=== PATIENT | female | born 1995 | race Hispanic/Latino ===

== ENCOUNTER 2020-09-03 09:16 | Emergency (ER) | payer BC, OTHER ==
[~2020-09-03] VITALS: Ht 149.9 cm; Wt 68.0 kg
--- NOTE | 2020-09-03 09:34 | NUR ---
DR. ANDRADE EVALUATING PATIENT
--- OUTSIDE RECORDS SUMMARY | 2020-09-03 09:52 | XMS REPORT | Continuity of Care Document ---
Author Author [facility] Organization [facility] Address [address] [place] [phone] Phone Unavailable Care Team Providers Care Manager Acute Name Role Phone Unavailable Unavailable Payers Payer Name Policy Type Policy Number Effective Date Expiration Date S ource Problems This patient has no known problems. Allergies, Adverse Reactions, Alerts Allergy Name Allergy Type Status Severity Reaction(s) Onset Date Inacti ve Date Treating Clinician Comments Source No Known Allergies DA Active U 2018-12-28 00:00:00 [facility] No Known Allergies DA Active U 2018-06-27 00:00:00 [facility] No Known Allergies DA Active U 2017-09-21 00:00:00 [facility] Medications This patient has no known medications. Procedures This patient has no known procedures. Results Test Description Test Time Test Comments Results Result Comments Source URINALYSIS COMPLETE 2020-03-06 22:37:00 Test Item UA COLOR (test code = COLU) [place] YELLOW UA APPEARANCE (test code = APPU) Cloudy CLEAR A UA GLUCOSE DIPSTICK (test code = DGLUU) NEGATIVE mg/dL NEGATIVE UA BILIRUBIN DIPSTICK (test code = BILU) NEGATIVE mg/dL NEGATIVE UA KETONE DIPSTICK (test code = KETU) 20 (1+) mg/dL NEGATIVE A UA SPECIFIC GRAVITY (test code = SGU) 1.031 1.001-1.035 UA BLOOD DIPSTICK (test code = ANIRUDH) 1.0 mg/dL (3+) mg/dL NEGATIVE A UA PH DIPSTICK (test code = DYLAN) 6.0 5.0-8.0 UA PROTEIN DIPSTICK (test code = PROU) 50 (1+) mg/dL NEGATIVE A UA UROBILINIOGEN DIPSTICK (test code = URO) Normal mg/dL NEGATIVE UA NITRITE DIPSTICK (test code = JANEE) NEGATIVE NEGATIVE UA LEUKOCYTE ESTERASE W REFLEX (test code = LEUUR) 25 Barbara/uL (Trace) Barbara/uL NEGATIVE A UA WBC (test code = WBCU) 6-10 per HPF 0-5 A UA RBC (test code = RBCU) 0-2 #/HPF 0-5 UA EPITHELIAL CELLS (test code = EPIU) MOD per HPF FEW UA BACTERIA (test code = BACU) MODERATE #/HPF NONE A UA MUCUS (test code = MUCU) MANY #/LPF FEW A Urine Source? Clean CatchBASIC METABOLIC [id number] 16:22:00* Test Item Value Reference Range Interpretation Comments SODIUM (test code = NA) 136 mmol/L 136-145 N POTASSIUM (test code = K) 3.6 mmol/L 3.5-5.1 N CHLORIDE (test code = CL) 105.0 mmol/L 98-107 N CARBON DIOXIDE (test code = CO2) 26.0 mmol/L 21-32 N ANION GAP (test code = GAP) 8.6 10-20 L GLUCOSE (test code = GLU) 96 mg/dL 74-106 N BLOOD UREA NITROGEN (test code = BUN) 12 mg/dL 7-18 N GLOMERULAR FILTRATION RATE (test code = GFR) > 60 mL/min >=60 Estimated GFR by using Modified MDRD formula.Chronic kidney disease is defined as either kidney damageor GFR <60 mL/min/1.73 m2 for >3 months. CREATININE (test code = CREAT) 0.60 mg/dL 0.55-1.02 N Note change in reference range due to change in reagent. BUN/CREATININE RATIO (test code = BUN/CREA) 20.0 10-20 N CALCIUM (test code = CA) 8.8 mg/dL 8.5-10.1 N HEPATIC FUNCTION [id number] 16:22:00* Test Item Value Reference Range Interpretation Comments TOTAL PROTEIN (test code = PROT) 7.8 gram/dL 6.4-8.2 N ALBUMIN (test code = ALB) 4.1 g/dL 3.4-5.0 N GLOBULIN (test code = GLOB) 3.7 gram/dL 2.7-4.2 N ALBUMIN/GLOBULIN RATIO (test code = A/G) 1.1 0.75-1.50 N BILIRUBIN TOTAL (test code = BILT) 0.50 mg/dL 0.0-1.0 N BILIRUBIN DIRECT (test code = BILD) 0.13 mg/dL 0.0-0.20 N SGOT/AST (test code = AST) 7 IUnit/L 15-37 L SGPT/ALT (test code = ALT) 16 IUnit/L 12-78 N ALKALINE PHOSPHATASE TOTAL (test code = ALKP) 58 IUnit/L 45-117 N Note change in reference range due to change in reagent. HCG SERUM [id number] 16:22:00* Test Item Value Reference Range Interpretation Comments HCG SERUM BETA (test code = HCG) 85162.0 mIU/mL 0-3 H Interfering substances present in the serum of somepatients may cause a false-positive result in this assay.Questionable elevations in serum hCG should be confirmedwith a urine hCG. Suspected Trophoblastic Neoplasms shouldnot be diagnosed based on serun hCG/beta hCG alone. Theymust be confirmed by clinical history and tissue diagnosis.INTERPRETATION:B-HCG LEVELS <5 SHOULD BE CONSIDERED "NEGATIVE." *WHEN BODERLINE RESULTS ARE ENCOUNTERED,PATIENT SAMPLESSHOULD BE REDRAWN 48 HOURS. 0-1 WEEKS AFTER CONCEPTION 5-50 MIU/ML1-2 WEEKS AFTER CONCEPTION 50-500 MIU/ML2-3 WEEKS AFTER CONCEPTION 100 -5,000 MIU/ML3-4 WEEKS AFTER CONCEPTION 500-10,000 MIU/ML4-5 WEEKS AFTER CONCEPTION 1000 -50,000 MIU/ML5-6 WEEKS AFTER CONCEPTION 10,000-100,000 MIU/ML6-8 WEEKS AFTER CONCEPTION 15,000- 200,000 MIU/ML2-3 MONTHS AFTER CONCEPTION 10,000-100,000 MIU/ML BASIC METABOLIC [id number] 15:58:00* Test Item Value Reference Range Interpretation Comments SODIUM (test code = NA) 136 mmol/L 136-145 N POTASSIUM (test code = K) 3.6 mmol/L 3.5-5.1 N CHLORIDE (test code = CL) 105.0 mmol/L 98-107 N CARBON DIOXIDE (test code = CO2) mmol/L 21-32 ANION GAP (test code = GAP) 10-20 GLUCOSE (test code = GLU) mg/dL 74-106 BLOOD UREA NITROGEN (test code = BUN) mg/dL 7-18 GLOMERULAR FILTRATION RATE (test code = GFR) mL/min >=60 CREATININE (test code = CREAT) mg/dL 0.55-1.02 BUN/CREATININE RATIO (test code = BUN/CREA) 10-20 CALCIUM (test code = CA) mg/dL 8.5-10.1 HEPATIC FUNCTION [id number] 15:58:00* Test Item Value Reference Range Interpretation Comments TOTAL PROTEIN (test code = PROT) gram/dL 6.4-8.2 ALBUMIN (test code = ALB) g/dL 3.4-5.0 GLOBULIN (test code = GLOB) gram/dL 2.7-4.2 ALBUMIN/GLOBULIN RATIO (test code = A/G) 0.75-1.50 BILIRUBIN TOTAL (test code = BILT) mg/dL 0.0-1.0 BILIRUBIN DIRECT (test code = BILD) mg/dL 0.0-0.20 SGOT/AST (test code = AST) IUnit/L 15-37 SGPT/ALT (test code = ALT) IUnit/L 12-78 ALKALINE PHOSPHATASE TOTAL (test code = ALKP) IUnit/L 45-117 HCG SERUM [id number] 15:58:00* Test Item Value Reference Range Interpretation Comments HCG SERUM BETA (test code = HCG) mIU/mL 0-3 CBC W/O [id number] 15:52:00* Test Item Value Reference Range Interpretation Comments WHITE BLOOD CELL (test code = WBC) 9.0 K/mm3 4.5-12.5 N RED BLOOD CELL (test code = RBC) 4.06 mill/mm3 3.7-5.2 N HEMOGLOBIN (test code = HGB) 13.0 gram/dL 11.5-15.5 N HEMATOCRIT (test code = HCT) 37.4 % 36.0-46.0 N MEAN CELL VOLUME (test code = MCV) 92.1 fL 80-98 N MEAN CELL HGB (test code = MCH) 32.0 picogram 27.0-33.0 N MEAN CELL HGB CONCETRATION (test code = MCHC) 34.8 gram/dL 33.0-36. 0 N RED CELL DISTRIBUTION WIDTH (test code = RDW) 12.4 % 11.6-16. 2 N PLATELET COUNT (test code = PLT) 365 K/mm3 150-450 N MEAN PLATELET VOLUME (test code = MPV) 10.3 fL 6.7-11.0 N CBC W/O [id number] 15:51:00* Test Item Value Reference Range Interpretation Comments WHITE BLOOD CELL (test code = WBC) K/mm3 4.5-12.5 RED BLOOD CELL (test code = RBC) mill/mm3 3.7-5.2 HEMOGLOBIN (test code = HGB) 13.0 gram/dL 11.5-15.5 N HEMATOCRIT (test code = HCT) 37.4 % 36.0-46.0 N MEAN CELL VOLUME (test code = MCV) fL 80-98 MEAN CELL HGB (test code = MCH) picogram 27.0-33.0 MEAN CELL HGB CONCETRATION (test code = MCHC) gram/dL 33.0-36. 0 RED CELL DISTRIBUTION WIDTH (test code = RDW) % 11.6-16. 2 PLATELET COUNT (test code = PLT) K/mm3 150-450 MEAN PLATELET VOLUME (test code = MPV) fL 6.7-11.0 - DUP AB/PEL/SC [id number] 15:44:00 Name: LALITA GONZALEZ [facility] : 1995 Age/S: 24 / F Rajendra Landaverde marilu Unit #: [id number] Loc: [place] [address] Phys: Salima Michele NP Acct: [id number] Dis Date: Status: REG ER PHONE #: [phone] Exam Date: 03/06/2020 [facility] FAX #: [phone] Reason: PELVIC PAIN EXAMS: CPT CODE: [id number] DUP AB/PEL/SC COMP [id number] REASON FOR EXAM: VAGINAL BLEEDING/PELVIC PAIN EXAM ORDER DATE: 03/06/2020 2:48 PM Attending: Ordering:Salima Michele NP Location:[facility] PROCEDURE: - US PREG 1ST TRIMTR, - US PREG UT TRANSVAGINAL, - DUP AB/PEL/SC COMP FINDINGS: The transabdominal ultrasound shows the uterus measured 8.5 x 5.5 cm. The ovaries were not seen on the transabdominal exam. No evidence of free fluid or adnexal mass on the transabdominal exam. The transvaginal ultrasound shows a single IUP with gestational sac measurement of 1.6 cm (6 week 2 day). [place] rump length measurement is 0.2 cm (5 week 5 day). heart rate is 108 bpm. The right ovary measured 2.6 x 2.2 cm. The left ovary measured 2.2 x 1.8 cm. Unremarkable ovarian flow is seen. Duplex scans of the ovarian arteries were performed. Agarwal scale images were supplemented with color-flow Doppler. Doppler flow velocity analysis (duplex Doppler) was performed. No fluid seen in the cul-de-sac. IMPRESSION: Small subchorionic hemorrhages (0.9 cm and 1.3 cm). Single viable IUP with estimated sonographic age of 6 week 0 day +/-0 week 3 day. Estimated delivery date is 10/30/2020 at 1544 Reported and signed by: Pierre Herrera M.D. CC: Gissell Carvajal MD; Salima Michele NP Technologist: IMELDA BARROW RT(R),KIRK Trnscb Date/Time: 03/06/2020 (9203) tSHINE Orig Print D/T: S: 03/06/2020 (0539) Probe: PAGE 1 Signed Report - US PREG UT [id number] 15:44:00 Name: LALITA GONZALEZ [facility] : 1995 Age/S: 24 / F [address] Unit #: [id number] Loc: [place] [address] Phys: Salima Michele NP Acct: [id number] Dis Date: Status: REG ER PHONE #: [phone] Exam Date: 03/06/2020 1535 FAX #: [phone] Reason: PELVIC PAIN EXAMS: CPT CODE: [id number] US PREG UT TRANSVAGINAL [id number] REASON FOR EXAM: VAGINAL BLEEDING/PELVIC PAIN EXAM ORDER DATE: 03/06/2020 2:48 PM Attending: Ordering:Salima Michele NP Location:[facility] PROCEDURE: - US PREG 1ST TRIMTR, - US PREG UT TRANSVAGINAL, - DUP AB/PEL/SC COMP FINDINGS: The transabdominal ultrasound shows the uterus measured 8.5 x 5.5 cm. The ovaries were not seen on the transabdominal exam. No evidence of free fluid or adnexal mass on the transabdominal exam. The transvaginal ultrasound shows a single IUP with gestational sac measurement of 1.6 cm (6 week 2 day). [place] rump length measurement is 0.2 cm (5 week 5 day). heart rate is 108 bpm. The right ovary measured 2.6 x 2.2 cm. The left ovary measured 2.2 x 1.8 cm. Unremarkable ovarian flow is seen. Duplex scans of the ovarian arteries were performed. Agarwal scale images were supplemented with color-flow Doppler. Doppler flow velocity analysis (duplex Doppler) was performed. No fluid seen in the cul-de-sac. IMPRESSION: Small subchorionic hemorrhages (0.9 cm and 1.3 cm). Single viable IUP with estimated sonographic age of 6 week 0 day +/-0 week 3 day. Estimated delivery date is 10/30/2020 at 6670 Reported and signed by: Pierre Herrera M.D. CC: Gissell Carvajal MD; Salima Michele NP Technologist: IMELDA BARROW RT(R),RDMS Trnscb Date/Time: 03/06/2020 (6561) [email or web address] Orig Print D/T: S: 03/06/2020 (1540) Probe: [id number] PAGE 1 Signed Report - US PREG 1ST [id number] 15:44:00 Name: LALITA GONZALEZ [facility] : 1995 Age/S: 24 / F Rajendra Kim Unit #: [id number] Loc: [place] [address] Phys: Salima Michele NP Acct: [id number] Dis Date: Status: REG ER PHONE #: [phone] Exam Date: 03/06/2020 5511 FAX #: [phone] Reason: VAGINAL BLEEDING/PELVIC PAIN EXAMS: CPT CODE: [id number] US PREG 1ST TRIMTR [id number] REASON FOR EXAM: VAGINAL BLEEDING/PELVIC PAIN EXAM ORDER DATE: 03/06/2020 2:48 PM Attending: Ordering:Salima Michele NP Location:[facility] PROCEDURE: - US PREG 1ST TRIMTR, - US PREG UT TRANSVAGINAL, - DUP AB/PEL/SC COMP FINDINGS: The transabdominal ultrasound shows the uterus measured 8.5 x 5.5 cm. The ovaries were not seen on the transabdominal exam. No evidence of free fluid or adnexal mass on the transabdominal exam. The transvaginal ultrasound shows a single IUP with gestational sac measurement of 1.6 cm (6 week 2 day). [place] rump length measurement is 0.2 cm (5 week 5 day). heart rate is 108 bpm. The right ovary measured 2.6 x 2.2 cm. The left ovary measured 2.2 x 1.8 cm. Unremarkable ovarian flow is seen. Duplex scans of the ovarian arteries were performed. [place] scale images were supplemented with color-flow Doppler. Doppler flow velocity analysis (duplex Doppler) was performed. No fluid seen in the cul-de-sac. IMPRESSION: Small subchorionic hemorrhages (0.9 cm and 1.3 cm). Single viable IUP with estimated sonographic age of 6 week 0 day +/-0 week 3 day. Estimated delivery date is 10/30/2020 at 1544 Reported and signed by: Pierre Herrera M.D. CC: Gissell Carvajal MD; Salima Michele NP Technologist: IMELDA BARROW RT(R),MILLYID Trnwvb Date/Time: 03/06/2020 (250) Ines Orig Print D/T: S: 03/06/2020 (2440) Probe: PAGE 1 Signed Report URINALYSIS [id number] 14:28:00* Test Item Value Reference Range Interpretation Comments UA COLOR (test code = COLU) LIGHT YELLOW YELLOW UA APPEARANCE (test code = APPU) HAZY CLEAR A UA GLUCOSE DIPSTICK (test code = DGLUU) NORMAL mg/dL NEGATIVE UA BILIRUBIN DIPSTICK (test code = BILU) NEGATIVE mg/dL NEGATIVE UA KETONE DIPSTICK (test code = KETU) neg mg/dL NEGATIVE UA SPECIFIC GRAVITY (test code = SGU) 1.015 1.001-1.035 UA BLOOD DIPSTICK (test code = ANIRUDH) 10 (Trace) Christian/uL NEGATIVE A UA PH DIPSTICK (test code = DYLAN) 5.0 5.0-8.0 UA PROTEIN DIPSTICK (test code = PROU) neg mg/dL Neg-15 UA UROBILINIOGEN DIPSTICK (test code = URO) norm mg/dL 0.0-0.2 UA NITRITE DIPSTICK (test code = JANEE) NEGATIVE NEGATIVE UA LEUKOCYTE ESTERASE DIPSTICK (test code = LEUU) 25 (Trace) uL NEG ATIVE A UA WBC (test code = WBCU) 0-5 per HPF 0-5 IN SOME URINARY TRACT INFECTIONS THERE MAY NOT BE ENOUGHWBCs IN THE URINE TO TRIGGER AN AUTOMATIC (REFLEX) URINECULTURE. A SEPERATE ORDER FOR URINE CULTURE IS RECOMMENDEDIF THERE IS STRONG SUPPORT FOR A URINARY TRACT INFECTIONCLINICALLY. UA RBC (test code = RBCU) NONE SEEN per HPF 0-5 UA EPITHELIAL CELLS (test code = EPIU) Few (2-5/hpf) per HPF Few UA BACTERIA (test code = BACU) FEW per HPF NONE UA MUCUS (test code = MUCU) MANY per LPF NONE-FEW URINALYSIS W/O [id number] 14:28:00* Test Item Value Reference Range Interpretation Comments UA MICROSCOPIC NEEDED? (test code = UAMICRO) NO, NOT INDICATED UA MICROSCOPIC NOT INDICATED UA MICROSCOPIC EXAMS ARE NOT PERFORMED UNLESS ONE OF THECHEMICAL TESTS OR VISUAL EXAMINATION IS ABNORMAL. THE MICROSCOPIC EVALUATIONS ARE PERFORMED ON ALL ABNORMALRESULTS AND/OR WHEN SPECIFICALLY ORDERED BY A PHYSICIAN. UR HCG [id number] 14:28:00* Test Item Value Reference Range Interpretation Comments UR HCG QUAL (test code = HCGQLU) NEGATIVE This HCGQL test is NOT applicable for MALE patients.Check with nurse about probable order error.If Tumor Marker Test needed, nurse should order test "HCGTU"(Test #[id number]) URINALYSIS [id number] 14:24:00* Test Item Value Reference Range Interpretation Comments UA COLOR (test code = COLU) LIGHT YELLOW YELLOW UA APPEARANCE (test code = APPU) HAZY CLEAR A UA GLUCOSE DIPSTICK (test code = DGLUU) NORMAL mg/dL NEGATIVE UA BILIRUBIN DIPSTICK (test code = BILU) NEGATIVE mg/dL NEGATIVE UA KETONE DIPSTICK (test code = KETU) neg mg/dL NEGATIVE UA SPECIFIC GRAVITY (test code = SGU) 1.015 1.001-1.035 UA BLOOD DIPSTICK (test code = ANIRUDH) 10 (Trace) Christian/uL NEGATIVE A UA PH DIPSTICK (test code = DYLAN) 5.0 5.0-8.0 UA PROTEIN DIPSTICK (test code = PROU) neg mg/dL Neg-15 UA UROBILINIOGEN DIPSTICK (test code = URO) norm mg/dL 0.0-0.2 UA NITRITE DIPSTICK (test code = JANEE) NEGATIVE NEGATIVE UA LEUKOCYTE ESTERASE DIPSTICK (test code = LEUU) 25 (Trace) uL NEG ATIVE A UA WBC (test code = WBCU) per HPF 0-5 URINALYSIS W/O [id number] 14:24:00* Test Item Value Reference Range Interpretation Comments UA MICROSCOPIC NEEDED? (test code = UAMICRO) NO, NOT INDICATED UA MICROSCOPIC NOT INDICATED UA MICROSCOPIC EXAMS ARE NOT PERFORMED UNLESS ONE OF THECHEMICAL TESTS OR VISUAL EXAMINATION IS ABNORMAL. THE MICROSCOPIC EVALUATIONS ARE PERFORMED ON ALL ABNORMALRESULTS AND/OR WHEN SPECIFICALLY ORDERED BY A PHYSICIAN. UR HCG [id number] 14:24:00* Test Item Value Reference Range Interpretation Comments UR HCG QUAL (test code = HCGQLU) URINALYSIS [id number] 14:24:00* Test Item Value Reference Range Interpretation Comments UA COLOR (test code = COLU) LIGHT YELLOW YELLOW UA APPEARANCE (test code = APPU) HAZY CLEAR A UA GLUCOSE DIPSTICK (test code = DGLUU) NORMAL mg/dL NEGATIVE UA BILIRUBIN DIPSTICK (test code = BILU) NEGATIVE mg/dL NEGATIVE UA KETONE DIPSTICK (test code = KETU) neg mg/dL NEGATIVE UA SPECIFIC GRAVITY (test code = SGU) 1.015 1.001-1.035 UA BLOOD DIPSTICK (test code = ANIRUDH) 10 (Trace) Christian/uL NEGATIVE A UA PH DIPSTICK (test code = DYLAN) 5.0 5.0-8.0 UA PROTEIN DIPSTICK (test code = PROU) neg mg/dL Neg-15 UA UROBILINIOGEN DIPSTICK (test code = URO) norm mg/dL 0.0-0.2 UA NITRITE DIPSTICK (test code = JANEE) NEGATIVE NEGATIVE UA LEUKOCYTE ESTERASE DIPSTICK (test code = LEUU) 25 (Trace) uL NEG ATIVE A UA WBC (test code = WBCU) per HPF 0-5 URINALYSIS W/O [id number] 14:24:00* Test Item Value Reference Range Interpretation Comments UA MICROSCOPIC NEEDED? (test code = UAMICRO) NO, NOT INDICATED UA MICROSCOPIC NOT INDICATED UA MICROSCOPIC EXAMS ARE NOT PERFORMED UNLESS ONE OF THECHEMICAL TESTS OR VISUAL EXAMINATION IS ABNORMAL. THE MICROSCOPIC EVALUATIONS ARE PERFORMED ON ALL ABNORMALRESULTS AND/OR WHEN SPECIFICALLY ORDERED BY A PHYSICIAN. UR HCG [id number] 14:24:00* Test Item Value Reference Range Interpretation Comments UR HCG QUAL (test code = HCGQLU)
[2020-09-03 09:53] LABS: BASOPHILS % 0.6 % (0.0-1.0); EOSINOPHILS # (AUTO) 0.3 (0.0-0.4); HEMATOCRIT 39.6 % (34.2-44.1); HEMOGLOBIN 13.8 g/dL (12.0-16.0); LYMPHOCYTES # (AUTO) 2.2 (1.0-3.2); LYMPHOCYTES % 31.8 % (18.0-39.1); MEAN CORPUSCULAR HEMOGLOBIN 32.1 pg (28-32); MEAN CORPUSCULAR HGB CONC 34.8 g/dL (31-35); MEAN CORPUSCULAR VOLUME 92.1 fL (81-99); MONOCYTES # (AUTO) 0.5 (0.2-0.8); MONOCYTES % 6.9 % (4.4-11.3); NEUTROPHILS # (AUTO) 3.8 (2.1-6.9); NEUTROPHILS % 56.4 % (38.7-80.0); PLATELET COUNT 388 x10e3/uL (140-360); RED CELL DISTRIBUTION WIDTH 12.4 % (11.7-14.4)
[2020-09-03] MEDS ORDERED: LORAZEPAM INJ 2 MG/ML VIAL IV ONE (10:00)
[2020-09-03 10:13] LABS: ALANINE AMINOTRANSFERASE 8 IU/L (0-55); ALBUMIN 4.4 g/dL (3.5-5.0); ALKALINE PHOSPHATASE 49 IU/L (40-150); BLOOD UREA NITROGEN 15 mg/dL (7-26); BUN/CREATININE RATIO 21 (6-25); CALCIUM 9.1 mg/dL (8.4-10.2); CARBON DIOXIDE 22 mmol/L (22-29); CHLORIDE 105 mmol/L (98-107); CREATININE, SERUM 0.71 mg/dL (0.57-1.11); EST GLOMERULAR FILTRATION RATE > 60 ML/MIN (60-); GLUCOSE 104 mg/dL (74-118); SODIUM 135 mmol/L (136-145)
[2020-09-03 10:17] LABS: CLARITY,URINE SL CLOUDY (CLEAR); COLOR,URINE YELLOW (YELLOW); LEUKOCYTE ESTERASE ,URINE NEGATIVE (NEGATIVE); NITRITE,URINE NEGATIVE (NEGATIVE)
[2020-09-03 10:18] LABS: BACTERIA,URINE RARE /HPF; BILIRUBIN,URINE NEGATIVE (NEGATIVE); EPITHELIAL CELLS,URINE FEW /LPF; KETONES,URINE NEGATIVE (NEGATIVE); PROTEIN,URINE DIPSTICK NEGATIVE (NEGATIVE); URINE UROBILINOGEN 0.2 mg/dL (0.2 - 1)
[2020-09-03 10:19] LABS: PREGNANCY TEST, URINE NEGATIVE (NEGATIVE)
--- NOTE | 2020-09-03 10:22 | Emergency Department Note ---
History of Present Illnes History of Present Illness Chief Complaint: General Medicine Complaints History of Present Illness This is a 24 year old female arrives to the ED with an acute anxiety attack that she states happened at work. . Chief Complaint Comment WHILE AT WORK BEGAN HAVING LEFT FOREARM ARM NUMBNESS AND CRAMPING AND FELT LIKE SHE WAS SEEING STARS. ALSO STATES SINCE SHE HAS HAD SAME EPISODE ALONG WITH "BLACKING OUT" FOR APPROX 10 MIN. WHILE IN TRIAGE SHE C/O OF DIZZINESS WHEN SHE RAISES HER HEAD UP TO FAST. Historian: Patient, Friend Arrival Mode: Car Additional Treatment [employer]: NONE Radiation: Reports non-radiation Severity: mild Onset quality: sudden Duration (how long): hour(s) Chronicity: recurrent Context: Denies recent illness, Denies recent surgery Relieving factors: none Exacerbating factors: none Past Medical/Family History Physician Review I have reviewed the patient's past medical and family history. Any updates have been documented here. Past Medical History Recent Fever: No Clinical Suspicion of Infectio: No New/Unexplained Change in Ment: No Past Medical History: None Past Surgical History: None Social History Smoking Cessation: Never Smoker Counseling Performed: No Alcohol Use: None Any Illegal Drug Use: No Other Last Tetanus: UTD Any Pre-Existing Lines (PICC,: No Review of Systems Review of Systems Constitutional: Reports no symptoms EENTM: Reports no symptoms Cardiovascular: Reports no symptoms Respiratory: Reports no symptoms Gastrointestinal: Reports no symptoms Genitourinary: Reports no symptoms Musculoskeletal: Reports no symptoms Integumentary: Reports no symptoms Neurological: Reports no symptoms Psychological: Reports as per HPI, Reports anxiety Endocrine: Reports no symptoms Hematological/Lymphatic: Reports no symptoms Physical Exam Related Data Allergies: Coded Allergies: No Known Allergies (Unverified , 09/03/20) Triage Vital Signs Vital Signs Date Time Temp Pulse Resp B/P (MAP) Pulse Ox O2 Delivery O2 Flow Rate FiO2 09/03/20 09:18 98.3 100 18 150/115 100 Room Air Vital signs reviewed: Yes Physical Exam CONSTITUTIONAL Constitutional: Present well-developed, Present well-nourished HENT HENT: Present normocephalic, Present atraumatic, Present oropharynx clear/moist, Present nose normal HENT L/R: Present left ext ear normal, Present right ext ear normal EYES Eyes: Reports PERRL, Reports conjunctivae normal NECK Neck: Present ROM normal PULMONARY Pulmonary: Present effort normal, Present breath sounds normal CARDIOVASCULAR Cardiovascular: Present regular rhythm, Present heart sounds normal, Present capillary refill normal, Present normal rate GASTROINTESTINAL Abdominal: Present soft, Present nontender, Present bowel sounds normal GENITOURINARY Genitourinary: Present exam deferred SKIN Skin: Present warm, Present dry MUSCULOSKELETAL Musculoskeletal: Present ROM normal NEUROLOGICAL Neurological: Present alert, Present oriented x 3, Present no gross motor or sensory deficits PSYCHOLOGICAL Psychological: Present mood/affect normal, Present judgement normal Results Laboratory Result Diagram: 09/03/20 0944 Laboratory Laboratory Tests Test 09/03/20 09:44 White Blood Count 6.80 x10e3/uL (4.8-10.8) Red Blood Count 4.30 x10e6/uL (3.6-5.1) Hemoglobin 13.8 g/dL (12.0-16.0) Hematocrit 39.6 % (34.2-44.1) Mean Corpuscular Volume 92.1 fL (81-99) Mean Corpuscular Hemoglobin 32.1 pg (28-32) Mean Corpuscular Hemoglobin Concent 34.8 g/dL (31-35) Red Cell Distribution Width 12.4 % (11.7-14.4) Platelet Count 388 x10e3/uL (140-360) Neutrophils (%) (Auto) 56.4 % (38.7-80.0) Lymphocytes (%) (Auto) 31.8 % (18.0-39.1) Monocytes (%) (Auto) 6.9 % (4.4-11.3) Eosinophils (%) (Auto) 4.0 % (0.0-6.0) Basophils (%) (Auto) 0.6 % (0.0-1.0) Neutrophils # (Auto) 3.8 (2.1-6.9) Lymphocytes # (Auto) 2.2 (1.0-3.2) Monocytes # (Auto) 0.5 (0.2-0.8) Eosinophils # (Auto) 0.3 (0.0-0.4) Basophils # (Auto) 0.0 (0.0-0.1) Absolute Immature Granulocyte (auto 0.02 x10e3/uL (0-0.1) Lab results reviewed: Yes Laboratory comments Laboratory Tests Test 11/8/20 09:44 White Blood Count 6.80 x10e3/uL (4.8-10.8) Red Blood Count 4.30 x10e6/uL (3.6-5.1) Hemoglobin 13.8 g/dL (12.0-16.0) Hematocrit 39.6 % (34.2-44.1) Mean Corpuscular Volume 92.1 fL (81-99) Mean Corpuscular Hemoglobin 32.1 pg (28-32) Mean Corpuscular Hemoglobin Concent 34.8 g/dL (31-35) Red Cell Distribution Width 12.4 % (11.7-14.4) Platelet Count 388 x10e3/uL (140-360) Neutrophils (%) (Auto) 56.4 % (38.7-80.0) Lymphocytes (%) (Auto) 31.8 % (18.0-39.1) Monocytes (%) (Auto) 6.9 % (4.4-11.3) Eosinophils (%) (Auto) 4.0 % (0.0-6.0) Basophils (%) (Auto) 0.6 % (0.0-1.0) Neutrophils # (Auto) 3.8 (2.1-6.9) Lymphocytes # (Auto) 2.2 (1.0-3.2) Monocytes # (Auto) 0.5 (0.2-0.8) Eosinophils # (Auto) 0.3 (0.0-0.4) Basophils # (Auto) 0.0 (0.0-0.1) Absolute Immature Granulocyte (auto 0.02 x10e3/uL (0-0.1) Urine Color Yellow (YELLOW) Urine Clarity Sl cloudy (CLEAR) Urine pH 7 (5 - 7) Urine Specific [place] >=1.030 (1.010-1.025) Urine Protein Negative (NEGATIVE) Urine Glucose (UA) Negative (NEGATIVE) Urine Ketones Negative (NEGATIVE) Urine Blood Trace (NEGATIVE) Urine Nitrite Negative (NEGATIVE) Urine Bilirubin Negative (NEGATIVE) Urine Urobilinogen 0.2 mg/dL (0.2 - 1) Urine Leukocyte Esterase Negative (NEGATIVE) Urine RBC 6-10 /HPF (0-5) Urine WBC 6-10 /HPF (0-5) Urine Epithelial Cells Few /LPF (NONE) Urine Bacteria Rare /HPF (NONE) Urine Test Negative (NEGATIVE) Sodium Level 135 mmol/L (136-145) Potassium Level 4.5 mmol/L (3.5-5.1) Chloride Level 105 mmol/L (98-107) Carbon Dioxide Level 22 mmol/L (22-29) Anion Gap 12.5 mmol/L (8-16) Blood Urea Nitrogen 15 mg/dL (7-26) Creatinine 0.71 mg/dL (0.57-1.11) Estimat Glomerular Filtration Rate > 60 ML/MIN (60-) BUN/Creatinine Ratio 21 (6-25) Glucose Level 104 mg/dL (74-118) Calcium Level 9.1 mg/dL (8.4-10.2) Total Bilirubin 0.2 mg/dL (0.2-1.2) Aspartate Amino Transf (AST/SGOT) 33 IU/L (5-34) Alanine Aminotransferase (ALT/SGPT) 8 IU/L (0-55) Alkaline Phosphatase 49 IU/L (40-150) Total Protein 8.6 g/dL (6.5-8.1) Albumin 4.4 g/dL (3.5-5.0) Globulin 4.2 g/dL (2.3-3.5) Albumin/Globulin Ratio 1.0 (0.8-2.0) Imaging Imaging results reviewed: Yes Procedures 12 Lead ECG Interpretation ECG Interpretation : ECG: ECG 1 Prior ECG tracings: reviewed QRS axis: normal ST segments normal: Yes T waves normal: Yes Clinical Impression: normal ECG Assessment & Plan Medical Decision Making MDM This patient presents with symptoms consistent with acute anxiety reaction / panic attack. Low suspicion for acute cardiopulmonary process including ACS, PE, or thoracic aortic dissection. Denies any ingestions or any other medical complaints. No evidence of alcohol withdrawal symptoms. Presentation not consistent with overt toxidrome, ingestion given history & physical. Presentation not consistent with organic or medical emergency at this time. No acute indication for psychiatric consultation (without SI/HI, AH/VH). Cautious return precautions discussed with full understanding. Plan: Rx Valium 2 mg by mouth every 8 hours when necessary, Psych follow up PRN Assessment & Plan Final Impression: (1) Acute anxiety Depart Disposition: HOME, SELF-CARE Last Vital Signs Date Time Temp Pulse Resp B/P (MAP) Pulse Ox O2 Delivery O2 Flow Rate FiO2 11/8/20 09:18 98.3 100 18 150/115 100 Room Air Home Meds Active Scripts Diazepam (VALIUM) 2 Mg Tablet, 2 MG PO Q6HR PRN for MUSCLE SPASMS, #20 0 Refills Prov:MILLICENT ANDRADE DO 09/03/20 Medications in the ED Lorazepam 1 mg ONCE ONCE IV ; Start 09/03/20 at 10:00; Stop 09/03/20 at 10:01 Lorazepam 1 mg ONCE ONCE PO Last administered on 09/03/20at 10:08; Admin Dose 1 MG; Start 09/03/20 at 10:30; Stop 09/03/20 at 10:31 MILLICENT ANDRADE DO Sep 03, 2020 10:17
[2020-09-03 10:26] LABS: ANION GAP 12.5 mmol/L (8-16); POTASSIUM 4.5 mmol/L (3.5-5.1)
[2020-09-03] MEDS ORDERED: LORAZEPAM 1 MG TAB PO ONE (10:30)
--- NOTE | 2020-09-03 11:11 | Diagnostic Imaging Report ---
Examination: CT BRAIN WO History:Dizzy, seizures Comparison studies:None Technique: Axial images were obtained from the skull base to the vertex. Coronal and sagittal images reconstructed from the axial data. Dose modulation, iterative reconstruction, and/or weight based adjustment of the mA/kV was utilized to reduce the radiation dose to as low as reasonably achievable. Intravenous contrast: None Findings: Scalp: No abnormalities. Bones: No fractures, blastic or lytic lesions. Brain sulci: Appropriate for age. Ventricles: Normal in size and configuration. No hydrocephalus. Extra-axial space: No abnormalities. Parenchyma: No abnormal densities. No masses, hemorrhage, or acute or chronic cortical based vascular insults.. Sellar/suprasellar region: No abnormalities. Craniocervical junction: Patent foramen magnum. No Chiari one malformation. Incidental findings: None. Impression: No intracranial abnormalities. Signed by: Dr. Laina Nayak M.D. on 09/03/2020 11:07 AM
[2020-09-03] MEDS ORDERED: VALIUM2 MG PO (11:17)
== END 2020-09-03 11:29 | disposition home or self-care (01) ==
LOC: ER 09:50
DX: F41.9 Anxiety disorder, unspecified (principal)
CPT/HCPCS: 36415; 70450; 80053; 81001; 81025; 85025; 93005; 99284

== ENCOUNTER 2020-10-04 11:41 | Emergency (ER) | payer BC ==
[~2020-10-04] VITALS: Ht 149.9 cm; Wt 68.0 kg
[~2020-10-04 11:41] MED LIST: VALIUM2 MG PO
[2020-10-04 12:13] LABS: STREPTOCOCCUS GRP A ANTIGEN NEGATIVE (NEGATIVE)
[2020-10-04] MEDS ORDERED: ONDANSETRON HCL 4 MG ORAL DISINTEGRATING TAB PO ONE (12:15)
[2020-10-04 12:28] LABS: INFLUENZAE A&B ANTIGEN (RAPID) NEGATIVE (NEGATIVE)
[2020-10-04 13:33] VITALS: BP 132/90
== END 2020-10-04 13:33 | disposition home or self-care (01) ==
LOC: ER 11:55
DX: B34.9 Viral infection, unspecified (principal); R51.9 Headache, unspecified; F41.9 Anxiety disorder, unspecified; Z20.828 Contact with and (suspected) exposure to other viral communicable diseases
CPT/HCPCS: 83518; 87070; 87400; 99283; Q0162; U0002

== ENCOUNTER → 2020-10-25 | Outpatient (CLI) | payer OTHER ==
[~2020-10-25] MED LIST changes: +COVID-19 VACC, MRNA(MODERNA)/PF 100 MCG/0.5 ML VIAL IM ONE
== END ==
LOC: VACCPMC 11:50
DX: Z23 Encounter for immunization (principal); Z20.828 Contact with and (suspected) exposure to other viral communicable diseases

== ENCOUNTER → 2020-11-17 | Outpatient (CLI) | payer BC ==
[~2020-11-17] MED LIST changes: -COVID-19 VACC, MRNA(MODERNA)/PF 100 MCG/0.5 ML VIAL IM ONE
[2020-11-17 07:43] LABS: BASOPHILS % 0.6 % (0.0-1.0); EOSINOPHILS # (AUTO) 0.3 (0.0-0.4); EOSINOPHILS % 4.9 % (0.0-6.0); HEMATOCRIT 39.2 % (34.2-44.1); HEMOGLOBIN 13.1 g/dL (12.0-16.0); LYMPHOCYTES # (AUTO) 2.4 (1.0-3.2); MEAN CORPUSCULAR HEMOGLOBIN 31.6 pg (28-32); MEAN CORPUSCULAR HGB CONC 33.4 g/dL (31-35); MEAN CORPUSCULAR VOLUME 94.7 fL (81-99); MONOCYTES # (AUTO) 0.6 (0.2-0.8); NEUTROPHILS # (AUTO) 3.7 (2.1-6.9); NEUTROPHILS % 52.2 % (38.7-80.0); PLATELET COUNT 349 x10e3/uL (140-360); RED BLOOD COUNT 4.14 x10e6/uL (3.6-5.1); RED CELL DISTRIBUTION WIDTH 12.4 % (11.7-14.4)
[2020-11-17 08:09] LABS: ALANINE AMINOTRANSFERASE 8 IU/L (0-55); ALBUMIN 4.2 g/dL (3.5-5.0); ALBUMIN/GLOBULIN RATIO 1.2 (0.8-2.0); ALKALINE PHOSPHATASE 59 IU/L (40-150); ANION GAP 15.2 mmol/L (8-16); BLOOD UREA NITROGEN 18 mg/dL (7-26); BUN/CREATININE RATIO 27 (6-25); CALCIUM 8.7 mg/dL (8.4-10.2); CARBON DIOXIDE 25 mmol/L (22-29); CHLORIDE 103 mmol/L (98-107); CHOL/HDL RATIO 2.8 (3.0-3.6); CHOLESTEROL 178 MD/DL (0-199); CREATININE, SERUM 0.66 mg/dL (0.57-1.11); EST GLOMERULAR FILTRATION RATE > 60 ML/MIN (60-); GLUCOSE 106 mg/dL (74-118); HDL CHOLESTEROL 63 MG/DL (40-60); LDL CHOLESTEROL 103 MG/DL (60-130); MAGNESIUM 1.9 MG/DL (1.3-2.1); POTASSIUM 4.2 mmol/L (3.5-5.1); SODIUM 139 mmol/L (136-145); TRIGLYCERIDES 59 MG/DL (0-149)
[2020-11-17 08:30] LABS: HCG,QUANTITATIVE < 1.20 mIU/mL (0-10); THYROID STIMULATING HORMONE 0.927 uIU/mL (0.350-4.940)
== END ==
LOC: LAB 07:22
PROVIDERS: ATTEND Internal Medicine
DX: Z00.00 Encounter for general adult medical examination without abnormal findings (principal); Z13.220 Encounter for screening for lipoid disorders; R73.09 Other abnormal glucose; N92.6 Irregular menstruation, unspecified; E55.9 Vitamin D deficiency, unspecified; M79.10 Myalgia, unspecified site
CPT/HCPCS: 36415; 80053; 80061; 82044; 82306; 82570; 82607; 83036; 83735; 84443; 84702; 85025

== ENCOUNTER → 2020-11-27 | Outpatient (CLI) | payer OTHER ==
[~2020-11-27] MED LIST changes: +COVID-19 VACC, MRNA(MODERNA)/PF 100 MCG/0.5 ML VIAL IM ONE
== END ==
LOC: VACCPMC 09:37
DX: Z23 Encounter for immunization (principal); Z20.822 Contact with and (suspected) exposure to COVID-19
CPT/HCPCS: 0012A; 91301

== ENCOUNTER → 2021-07-27 | Outpatient (CLI) | payer BC ==
[~2021-07-27] MED LIST changes: -COVID-19 VACC, MRNA(MODERNA)/PF 100 MCG/0.5 ML VIAL IM ONE; +IOPAMIDOL 370 MG/ML 200 ML INFUS..BTL INJ ONE; +SODIUM CHLORIDE 0.9% 50ML 50 ML ONE
== END ==
LOC: CT 13:25
PROVIDERS: ATTEND Internal Medicine Gastroenterology
DX: K62.5 Hemorrhage of anus and rectum (principal); R10.30 Lower abdominal pain, unspecified
CPT/HCPCS: 74177; 81025; Q9967

== ENCOUNTER → 2021-08-02 | Day surgery (SDC) | payer BC ==
[~2021-08-02] MED LIST changes: +FENTANYL CITRATE/PF 100MCG/2 ML INJ ONE; -IOPAMIDOL 370 MG/ML 200 ML INFUS..BTL INJ ONE; +LABETALOL HCL 20 ML ONE; -SODIUM CHLORIDE 0.9% 50ML 50 ML ONE
[2021-08-02 10:15] VITALS: BP 115/87
== END | disposition home or self-care (01) ==
LOC: OR 06:32
PROVIDERS: ATTEND Internal Medicine Gastroenterology
DX: K62.5 Hemorrhage of anus and rectum (principal); D12.5 Benign neoplasm of sigmoid colon; K64.8 Other hemorrhoids; K62.89 Other specified diseases of anus and rectum; Z01.812 Encounter for preprocedural laboratory examination; Z20.822 Contact with and (suspected) exposure to COVID-19
CPT/HCPCS: 45380; 45381; 81025; J3010; J3490; U0002; 45378

== ENCOUNTER 2021-08-14 09:37 | Emergency (ER) | payer BC ==
[~2021-08-14] VITALS: Ht 149.9 cm; Wt 68.0 kg
[~2021-08-14 09:37] MED LIST changes: -FENTANYL CITRATE/PF 100MCG/2 ML INJ ONE; -LABETALOL HCL 20 ML ONE
[2021-08-14 10:02] LABS: BASOPHILS % 0.4 % (0.0-1.0); EOSINOPHILS # (AUTO) 0.2 (0.0-0.4); HEMATOCRIT 39.4 % (34.2-44.1); HEMOGLOBIN 13.4 g/dL (12.0-16.0); LYMPHOCYTES # (AUTO) 2.5 (1.0-3.2); LYMPHOCYTES % 35.6 % (18.0-39.1); MEAN CORPUSCULAR HEMOGLOBIN 31.3 pg (28-32); MEAN CORPUSCULAR VOLUME 92.1 fL (81-99); MONOCYTES # (AUTO) 0.4 (0.2-0.8); MONOCYTES % 5.9 % (4.4-11.3); NEUTROPHILS # (AUTO) 3.9 (2.1-6.9); PLATELET COUNT 353 x10e3/uL (140-360); RED BLOOD COUNT 4.28 x10e6/uL (3.6-5.1); RED CELL DISTRIBUTION WIDTH 11.6 % (11.7-14.4)
[2021-08-14 10:23] LABS: ALBUMIN 4.8 g/dL (3.5-5.0); ALBUMIN/GLOBULIN RATIO 1.5 (0.8-2.0); ANION GAP 17.1 mmol/L (8-16); CALCIUM 9.1 mg/dL (8.4-10.2); CREATININE, SERUM 0.76 mg/dL (0.57-1.11); POTASSIUM 4.1 mmol/L (3.5-5.1)
== END 2021-08-14 12:23 | disposition home or self-care (01) ==
LOC: ER 09:43
DX: K62.5 Hemorrhage of anus and rectum (principal); R19.09 Other intra-abdominal and pelvic swelling, mass and lump; K63.9 Disease of intestine, unspecified; Z20.822 Contact with and (suspected) exposure to COVID-19
CPT/HCPCS: 36415; 80053; 85025; 99283; U0002

== ENCOUNTER 2021-08-22 07:51 | Inpatient (IN) | payer BC ==
[2021-08-20 13:14] LABS: BASOPHILS % 0.4 % (0.0-1.0); EOSINOPHILS # (AUTO) 0.3 (0.0-0.4); EOSINOPHILS % 3.4 % (0.0-6.0); HEMATOCRIT 32.7 % (34.2-44.1); LYMPHOCYTES # (AUTO) 2.9 (1.0-3.2); MEAN CORPUSCULAR HEMOGLOBIN 31.1 pg (28-32); MEAN CORPUSCULAR HGB CONC 33.6 g/dL (31-35); MEAN CORPUSCULAR VOLUME 92.4 fL (81-99); MONOCYTES # (AUTO) 0.5 (0.2-0.8); MONOCYTES % 7.1 % (4.4-11.3); NEUTROPHILS # (AUTO) 3.6 (2.1-6.9); NEUTROPHILS % 48.8 % (38.7-80.0); PLATELET COUNT 299 x10e3/uL (140-360); RED BLOOD COUNT 3.54 x10e6/uL (3.6-5.1); RED CELL DISTRIBUTION WIDTH 11.7 % (11.7-14.4)
[2021-08-20 14:12] LABS: ALBUMIN 4.1 g/dL (3.5-5.0); ALBUMIN/GLOBULIN RATIO 1.5 (0.8-2.0); ANION GAP 13.9 mmol/L (8-16); CALCIUM 8.8 mg/dL (8.4-10.2); CREATININE, SERUM 0.73 mg/dL (0.57-1.11); POTASSIUM 3.9 mmol/L (3.5-5.1)
[~2021-08-22] VITALS: Ht 149.9 cm; Wt 54.4 kg
[2021-08-22] MEDS ORDERED: NEOMYCIN SULFA500 MG PO (09:06)
[2021-08-22] MEDS ORDERED: ERYTHROMYCIN500 MG PO (09:06)
[2021-08-22] MEDS ORDERED: LIDOCAINE 1% W/EPINEPHRINE 20 ML VIAL ONE (10:54)
[2021-08-22] MEDS ORDERED: BUPIVACAINE 0.25% 30ML SDV ONE (10:54)
[2021-08-22] MEDS ORDERED: BUPIVACAINE HCL 0.5% INJ 30 ML VIAL INJ ONE (10:56)
[2021-08-22] MEDS ORDERED: KETOROLAC TROMETHAMINE 30 MG/ML VIAL ONE (12:46)
[2021-08-22] MEDS ORDERED: POVIDONE IODINE 0.05% 0.05 % ML PO ONE (12:46)
[2021-08-22] MEDS ORDERED: DEXAMETHASONE SOD PHOS INJ 4 MG/ML SDV ONE (12:46)
[2021-08-22] MEDS ORDERED: ROCURONIUM BROMIDE 10 MG/ML 5ML VIAL IV ONE (12:46)
[2021-08-22] MEDS ORDERED: ONDANSETRON HCL INJ 2MG/ML 2ML 2 MG/ML VIAL ONE (12:46)
[2021-08-22] MEDS ORDERED: PROPOFOL IV EMULSION 10 MG/ML 20 ML VIAL ONE (12:46)
[2021-08-22] MEDS ORDERED: LIDOCAINE HCL 2% LOCAL INJ 5 ML SDV VIAL INJ ONE (12:46)
[2021-08-22] MEDS ORDERED: ESMOLOL HCL 100MG/10ML 10 MG/ML VIAL ONE (12:46)
[2021-08-22] MEDS ORDERED: SEVOFLURANE INHAL SOLN 250 ML PEN BTL ONE (12:46)
[2021-08-22] MEDS ORDERED: MIDAZOLAM HCL 2 MG/2 ML VIAL ONE (13:46)
[2021-08-22] MEDS ORDERED: FENTANYL CITRATE/PF 100MCG/2 ML INJ ONE (13:46)
[2021-08-22] MEDS ORDERED: KETAMINE HCL INJ 50 MG/ML 10 ML VIAL ONE (13:46)
[2021-08-22] MEDS ORDERED: MEPERIDINE HCL INJ 25 MG/ML VIAL ONE (14:28)
[2021-08-22] MEDS ORDERED: HYDROMORPHONE 0.2MG/ML-SOD CHL 30ML PCA SYRINGE IV ONE (14:31)
[2021-08-22 14:48] VITALS: BP 131/93
[2021-08-22 16:01] VITALS: BP 131/93
[2021-08-22] MEDS: SODIUM CHLORIDE 0.9% 250ML IRRIG IR SCH ×4 (16:09→23:52)
[2021-08-22] MEDS: SODIUM CHLORIDE 0.9% 1000ML 1,000 ML IV SCH (16:09)
[2021-08-22] MEDS ORDERED: ACETAMINOPHEN 1000 MG/100 ML IV PRN (17:00)
[2021-08-22] MEDS: CEFOXITIN 1GM/0.9% NS 50ML 50 ML IV SCH ×2 (17:12→23:46)
[2021-08-22] MEDS ORDERED: CHLORASEPTIC SPRAY 177 ML BTL MM PRN (19:30)
[2021-08-22] MEDS ORDERED: CEPACOL SORE THROAT LOZENGES PO PRN (19:30)
[2021-08-22] MEDS: HYDROMORPHONE 1MG/1ML INJ IV PRN (19:52)
[2021-08-22] MEDS: ONDANSETRON HCL INJ 2MG/ML 2ML 2 MG/ML VIAL IV PRN (19:52)
[2021-08-22 20:00] VITALS: BP 122/85
[2021-08-23] VITALS (8 sets, daily range): BP systolic 100–136; BP diastolic 65–86
[2021-08-23] MEDS: SODIUM CHLORIDE 0.9% 1000ML 1,000 ML IV SCH ×2 (02:00→15:54)
[2021-08-23] MEDS: HYDROMORPHONE 1MG/1ML INJ IV PRN ×6 (02:09→21:38)
[2021-08-23 05:45] LABS: BASOPHILS % 0.1 % (0.0-1.0); EOSINOPHILS # (AUTO) 0.1 (0.0-0.4); EOSINOPHILS % 1.2 % (0.0-6.0); HEMATOCRIT 30.8 % (34.2-44.1); HEMOGLOBIN 10.2 g/dL (12.0-16.0); LYMPHOCYTES # (AUTO) 1.8 (1.0-3.2); LYMPHOCYTES % 26.1 % (18.0-39.1); MEAN CORPUSCULAR HGB CONC 33.1 g/dL (31-35); MEAN CORPUSCULAR VOLUME 93.6 fL (81-99); MONOCYTES # (AUTO) 0.7 (0.2-0.8); MONOCYTES % 9.6 % (4.4-11.3); NEUTROPHILS # (AUTO) 4.2 (2.1-6.9); NEUTROPHILS % 62.7 % (38.7-80.0); PLATELET COUNT 236 x10e3/uL (140-360); RED BLOOD COUNT 3.29 x10e6/uL (3.6-5.1); RED CELL DISTRIBUTION WIDTH 11.7 % (11.7-14.4)
[2021-08-23] MEDS: SODIUM CHLORIDE 0.9% 250ML IRRIG IR SCH ×2 (05:55→10:15)
[2021-08-23 06:03] LABS: ANION GAP 15.5 mmol/L (8-16); CALCIUM 8.3 mg/dL (8.4-10.2); CREATININE, SERUM 0.75 mg/dL (0.57-1.11); POTASSIUM 4.5 mmol/L (3.5-5.1)
[2021-08-23] MEDS: ONDANSETRON HCL INJ 2MG/ML 2ML 2 MG/ML VIAL IV PRN ×3 (07:45→18:30)
[2021-08-24] VITALS (8 sets, daily range): BP systolic 100–129; BP diastolic 60–86
[2021-08-24] MEDS: SODIUM CHLORIDE 0.9% 1000ML 1,000 ML IV SCH ×3 (01:30→22:08)
[2021-08-24] MEDS: HYDROMORPHONE 1MG/1ML INJ IV PRN ×5 (01:35→22:09)
[2021-08-24 08:37] LABS: BASOPHILS % 0.1 % (0.0-1.0); EOSINOPHILS # (AUTO) 0.1 (0.0-0.4); EOSINOPHILS % 0.9 % (0.0-6.0); HEMATOCRIT 32.4 % (34.2-44.1); HEMOGLOBIN 10.8 g/dL (12.0-16.0); LYMPHOCYTES # (AUTO) 1.2 (1.0-3.2); LYMPHOCYTES % 17.4 % (18.0-39.1); MEAN CORPUSCULAR HEMOGLOBIN 30.9 pg (28-32); MEAN CORPUSCULAR HGB CONC 33.3 g/dL (31-35); MEAN CORPUSCULAR VOLUME 92.8 fL (81-99); MONOCYTES # (AUTO) 0.4 (0.2-0.8); MONOCYTES % 6.2 % (4.4-11.3); NEUTROPHILS # (AUTO) 5.2 (2.1-6.9); NEUTROPHILS % 75.3 % (38.7-80.0); PLATELET COUNT 225 x10e3/uL (140-360); RED BLOOD COUNT 3.49 x10e6/uL (3.6-5.1); RED CELL DISTRIBUTION WIDTH 11.5 % (11.7-14.4)
[2021-08-24 09:01] LABS: ANION GAP 18.9 mmol/L (8-16); CALCIUM 8.4 mg/dL (8.4-10.2); CREATININE, SERUM 0.72 mg/dL (0.57-1.11); POTASSIUM 3.9 mmol/L (3.5-5.1)
[2021-08-24] MEDS ORDERED: HYDROCODONE/APAP 5MG-325MG TAB PO PRN (20:15)
[2021-08-25] VITALS: BP 103/66
[2021-08-25 04:00] VITALS: BP 116/87
[2021-08-25] MEDS: HYDROMORPHONE 1MG/1ML INJ IV PRN ×3 (04:04→13:37)
[2021-08-25 07:25] VITALS: BP 119/89
[2021-08-25] MEDS: SODIUM CHLORIDE 0.9% 1000ML 1,000 ML IV SCH (08:26)
[2021-08-25 09:46] VITALS: BP 119/89
[2021-08-25 11:19] VITALS: BP 135/87
[2021-08-25 11:59] LABS: BASOPHILS % 0.2 % (0.0-1.0); EOSINOPHILS # (AUTO) 0.1 (0.0-0.4); EOSINOPHILS % 2.3 % (0.0-6.0); HEMATOCRIT 31.4 % (34.2-44.1); HEMOGLOBIN 10.6 g/dL (12.0-16.0); LYMPHOCYTES # (AUTO) 1.4 (1.0-3.2); LYMPHOCYTES % 24.5 % (18.0-39.1); MEAN CORPUSCULAR HEMOGLOBIN 30.6 pg (28-32); MEAN CORPUSCULAR HGB CONC 33.8 g/dL (31-35); MEAN CORPUSCULAR VOLUME 90.8 fL (81-99); MONOCYTES # (AUTO) 0.4 (0.2-0.8); MONOCYTES % 7.6 % (4.4-11.3); NEUTROPHILS # (AUTO) 3.6 (2.1-6.9); NEUTROPHILS % 65.2 % (38.7-80.0); PLATELET COUNT 278 x10e3/uL (140-360); RED BLOOD COUNT 3.46 x10e6/uL (3.6-5.1); RED CELL DISTRIBUTION WIDTH 11.4 % (11.7-14.4)
[2021-08-25 12:20] LABS: ANION GAP 16.2 mmol/L (8-16); CALCIUM 8.4 mg/dL (8.4-10.2); CREATININE, SERUM 0.64 mg/dL (0.57-1.11); POTASSIUM 4.2 mmol/L (3.5-5.1)
== END 2021-08-25 15:00 | disposition home or self-care (01) | DRG 331 ==
LOC: OR 07:51 → PACU V 14:15 → MED/SURG 14:50
PROVIDERS: ADMIT Surgery; ATTEND Surgery
PROC: 0DTNFZZ Resection of Sigmoid Colon, Via Natural or Artificial Opening With Percutaneous Endoscopic Assistance (ICD-10-PCS; principal; 2021-08-22 10:00)
DX: C18.7 Malignant neoplasm of sigmoid colon (principal); Z20.822 Contact with and (suspected) exposure to COVID-19
CPT/HCPCS: 36415; 80048; 80053; 81025; 85025; 88305; 88309; 88329; 88331; 88342; 96360; C1766; J0694; J1100; J1170; J1885; J2001; J2175; J2250; J2405; J3010; J7030; U0002